=== PATIENT | female | born 1965 | race Caucasian/White ===

== ENCOUNTER 2016-12-14 18:32 | Emergency (ER) | payer OTHER ==
[~2016-12-14] VITALS: Ht 167.6 cm; Wt 73.9 kg
[~2016-12-14 18:32] MED LIST: ALPRAZOLAM ER0.5 MG PO; IBUPROFEN 600600 M1 PO; NORCO 5-325 TA1 EACH PO; PROVENTIL HFA6.7 G1 INH; ZOLOFT25 MG PO
[2016-12-14 18:41] VITALS: BP 178/84
== END 2016-12-14 19:07 | disposition home or self-care (01) ==
LOC: ER 18:32
DX: M54.5 Low back pain (principal); F41.9 Anxiety disorder, unspecified; F10.99 Alcohol use, unspecified with unspecified alcohol-induced disorder; Z87.891 Personal history of nicotine dependence; V89.2XXA Person injured in unspecified motor-vehicle accident, traffic, initial encounter; Y93.89 Activity, other specified; Y92.9 Unspecified place or not applicable; Y99.9 Unspecified external cause status